=== PATIENT | male | born 1975 | race Caucasian/White ===

== ENCOUNTER 2018-09-30 16:53 | Emergency (ER) | payer MEDICAID, OTHER ==
[2018-09-30] MEDS ORDERED: HYDROmorphone 1 MG/ML Syringe IVPUSH ONE ×2 (17:28→18:38)
[2018-09-30] MEDS ORDERED: Metoclopramide 10 MG/2 ML SDV IVPUSH ONE (17:28)
[2018-09-30] MEDS ORDERED: Dextrose 5%-0.9% NaCl 1,000 ML IV SCH (17:30)
--- NOTE | 2018-09-30 17:30 | EDM.PDOC ---
ED HPI GENERAL MEDICAL PROBLEM - General Chief Complaint: Abdominal Pain Stated Complaint: L SIDE ABD PAIN Time Seen by Provider: 09/30/18 17:24 Source of Information: Reports: Patient History Limitations: Reports: No Limitations - History of Present Illness INITIAL COMMENTS - FREE TEXT/NARRATIVE: 42-year-old male presents the ED due to severe left stephanie-abdominal pain. States is worse in the left lower quadrant and suprapubically. Patient states became ill over a week ago. He was seen and is likely last weekend and prescribed Cipro and Flagyl. He filled the prescriptions in [place] on September 26. He believes the medication is going right through him as he is having diarrhea. Also having nausea and intermittent vomiting. Pain is worse now than it's ever been in the past. He has a history of diverticulitis 3 times in the past. Previous abdominal surgeries that of a hernia raphe repair inguinal right side and a removal of an undescended testicle. He's had intermittent fever and chills. At present he has not been able to eat much. Stools are semi-formed without any obvious blood but are darker in color. He is not taking any Pepto- Bismol. It hurts to walk it hurts to sit in a vehicle in a hurts terribly to cough. He states intermittently he is vomiting and he has a known hiatal hernia which is bothering him a good deal in the epigastrium as well. Onset: Gradual Onset Date: 09/23/18 (Believes he became ill about a week ago.) Duration: Day(s):, Getting Worse Location: Reports: Abdomen (Left hemiabdomen particularly left lower quadrant and suprapubically rating slightly into his lower back) Quality: Reports: Sharp (Deep aching pain with occasional sharp colicky pain), Stabbing, Other Severity: Moderate (8-9 out of 10) Improves with: Reports: Rest Worsens with: Reports: Other, Movement Context: Denies: Activity (Coughing or riding in a vehicle.), Exercise, Lifting , Sick Contact, Trauma, Other Associated Symptoms: Reports: Cough, Fever/Chills, Loss of Appetite, Nausea/ Vomiting, Other (Diarrhea without blood some eye formed stool usually 5-6 times daily.). Denies: cough w sputum, Diaphoresis, Headaches, Malaise, Rash, Seizure (2 and nausea vomiting with quite significant pain in the epigastrium. He has a known hiatal hernia), Shortness of Breath, Syncope Left Abdomen Pain Score (Numeric/FACES): 8 - Related Data Allergies Allergy/AdvReac Type Severity Reaction Status Date / Time contrast dye Allergy Itching Uncoded 09/21/18 20:29 [employer] Home Meds: Home Meds Ciprofloxacin HCl [Cipro] 500 mg PO BID 09/30/18 [History] Clindamycin HCl 300 mg PO TID #21 capsule 09/30/18 [Rx] Dicyclomine [Bentyl] 20 mg PO Q6H PRN #12 tablet 09/30/18 [Rx] Escitalopram [Lexapro] 10 mg PO DAILY 09/30/18 [History] Losartan [Cozaar] 50 mg PO DAILY 09/30/18 [History] Metoclopramide HCl [Reglan] 10 mg PO Q6H #10 tablet 09/30/18 [Rx] Ondansetron [Zofran ODT] 4 mg SL ASDIRECTED 09/30/18 [History] oxyCODONE HCl/Acetaminophen [Percocet 5-325 mg Tablet] 1 - 2 each PO Q4H PRN # 20 tablet 09/30/18 [Rx] Past Medical History Cardiovascular History: Reports: Hypertension Gastrointestinal History: Reports: Diverticulosis, GERD, Helicobacter Pylori, Hiatal Hernia, Other (See Below) Other Gastrointestinal History: endoscopy Genitourinary History: Reports: Renal Calculus Psychiatric History: Reports: Depression Endocrine/Metabolic History: Reports: Hypoparathyroidism - Past Surgical History GI Surgical History: Reports: Cholecystectomy, Colonoscopy, Hernia, Inguinal Male Surgical History: Reports: Other (See Below) Other Male Surgeries/Procedures: testicle removed Social & Family History - Tobacco Use Smoking Status *Q: Current Every Day Smoker Years of Tobacco use: 10 Packs/Tins Daily: 0.5 - Caffeine Use Caffeine Use: Reports: Coffee, Soda - Living Situation & Occupation Living situation: Reports: ([id number] father) ED ROS GENERAL - Review of Systems Review Of Systems: See Below Constitutional: Reports: Fever, Chills, Malaise, Weakness, Fatigue, Decreased Appetite, Weight Loss HEENT: Reports: No Symptoms Respiratory: Reports: Cough Cardiovascular: Reports: Chest Pain Endocrine: Reports: Fatigue GI/Abdominal: Reports: Abdominal Pain, Diarrhea (Left stephanie-abdominal pain particularly left lower quadrant and suprapubically.), Nausea ( Loose semi- formed stools dark in color without any obvious blood.), Vomiting (Committed nausea and vomiting.) : Reports: No Symptoms Musculoskeletal: Reports: Back Pain Skin: Reports: No Symptoms (Does have pain in his lower back left side starting in the abdomen.) Neurological: Reports: No Symptoms Psychiatric: Reports: No Symptoms Hematologic/Lymphatic: Reports: No Symptoms Immunologic: Reports: No Symptoms ED EXAM, GI/ABD - Physical Exam Exam: See Below Exam Limited By: No Limitations General Appearance: Alert, Moderate Distress (Appears to be in significant degree of distress.) Eyes: Bilateral: Normal Appearance (No scleral icterus.) Throat/Mouth: Other Head: Atraumatic (Tongue is mildly dry.), Normocephalic Neck: Normal Inspection, Supple, Non-Tender, Full Range of Motion, Other (Well- healed thyroid ectomy scar.He had neck surgery for removal of 2 of his parathyroid glands because of hypercalcemia. Apparently his calcium is slowly rising again.). No: Lymphadenopathy (L), Lymphadenopathy (R) Respiratory/Chest: Respiratory Distress Cardiovascular: Normal Peripheral Pulses, No Edema, No Gallop, No Murmur, No Rub , Tachycardia (Tachycardia at rest 10 5/m) GI/Abdominal Exam: No Organomegaly, Guarding, Rebound (Left lower quadrant. Clinically has an acute abdomen.), Tender (He has tenderness to even light percussion in the left lower quadrant of the abdomen and suprapubically.), Abnormal Bowel Sounds (Slightly hyperactive bowel sounds in all 4 quadrants.) (Male) Exam: Other (Previous right hernia raphe and apparently removal of an undescended right-sided testicle.) Back Exam: Normal Inspection, Full Range of Motion, CVA Tenderness (L). No: CVA Tenderness (R) (Mild) Extremities: Normal Inspection, Normal Range of Motion, Non-Tender, No Pedal Edema Neurological: Alert, Oriented, CN II-XII Intact, Normal Cognition Psychiatric: Tearful, Other Skin Exam: Warm (Appears very worn out in terms of trying to cope with his current illness.), Dry, Intact, Normal Color, No Rash, Other (Afebrile at present.) Course - Vital Signs Last Recorded V/S: Last Vital Signs Temp 36.9 C 09/30/18 17:21 Pulse 104 H 09/30/18 17:21 Resp 20 09/30/18 17:21 BP 169/132 H 09/30/18 17:21 Pulse Ox 98 09/30/18 17:21 - Orders/Labs/Meds Orders: Active Orders 24 hr Category Date Time Status Blood Culture x2 Reflex Set [OM.PC] Stat Oth 09/30/18 17:29 Ordered Labs: Laboratory Tests 09/30/18 09/30/18 09/30/18 Range/Units 17:25 17:25 17:25 WBC 8.56 (4.23-9.07) K/mm3 RBC 5.52 (4.63-6.08) M/mm3 Hgb 16.6 (13.7-17.5) gm/L Hct 49.2 (40.1-51.0) % MCV 89.1 (79.0-92.2) fl MCH 30.1 (25.7-32.2) pg MCHC 33.7 (32.2-35.5) g/dl RDW Std Deviation 40.9 (35.1-43.9) fL Plt Count 267 (163-337) K/mm3 MPV 10.0 (9.4-12.3) fl Neutrophils % (Manual) 77 H (40-60) % Band Neutrophils % 1 (0-10) % Lymphocytes % (Manual) 13 L (20-40) % Atypical Lymphs % 0 % Monocytes % (Manual) 7 (2-10) % Eosinophils % (Manual) 2 (0.8-7.0) % Basophils % (Manual) 0 L (0.2-1.2) Platelet Estimate Adequate RBC Morph Comment Normal ESR (0-15) mm/hr PT 11.1 (9.5-12.1) SECONDS INR 1.02 APTT (24-31) SECONDS Sodium 141 (136-145) mEq/L Potassium 3.8 (3.5-5.1) mEq/L Chloride 105 (98-107) mEq/L Carbon Dioxide 25 (21-32) mEq/L Anion Gap 14.8 (5-15) BUN 13 (7-18) mg/dL Creatinine 1.0 (0.7-1.3) mg/dL Est Cr Clr Drug Dosing 111.88 mL/min Estimated GFR (MDRD) > 60 (>60) mL/min BUN/Creatinine Ratio 13.0 L (14-18) Glucose 134 H (74-106) mg/dL Lactic Acid (0.4-2.0) mmol/L Calcium 10.0 (8.5-10.1) mg/dL Magnesium 2.1 (1.8-2.4) mg/dl Total Bilirubin 0.4 (0.2-1.0) mg/dL AST 44 H (15-37) U/L ALT 70 H (16-63) U/L Alkaline Phosphatase 98 (46-116) U/L C-Reactive Protein 0.2 (<1.0) mg/dL Total Protein 7.1 (6.4-8.2) g/dl Albumin 3.7 (3.4-5.0) g/dl Globulin 3.4 gm/dL Albumin/Globulin Ratio 1.1 (1-2) Urine Color (Yellow) Urine Appearance (Clear) Urine pH (5.0-8.0) Ur Specific [place] (1.005-1.030) Urine Protein (Negative) Urine Glucose (UA) (Negative) Urine Ketones (Negative) Urine Occult Blood (Negative) Urine Nitrite (Negative) Urine Bilirubin (Negative) Urine Urobilinogen (0.2-1.0) Ur Leukocyte Esterase (Negative) Urine RBC (0-5) /hpf Urine WBC (0-5) /hpf Ur Epithelial Cells (0-5) /hpf Urine Bacteria (FEW) /hpf Urine Mucus (FEW) /hpf Ketones (0.0-0.3) mM 09/30/18 09/30/18 09/30/18 Range/Units 17:25 17:25 17:25 WBC (4.23-9.07) K/mm3 RBC (4.63-6.08) M/mm3 Hgb (13.7-17.5) gm/L Hct (40.1-51.0) % MCV (79.0-92.2) fl MCH (25.7-32.2) pg MCHC (32.2-35.5) g/dl RDW Std Deviation (35.1-43.9) fL Plt Count (163-337) K/mm3 MPV (9.4-12.3) fl Neutrophils % (Manual) (40-60) % Band Neutrophils % (0-10) % Lymphocytes % (Manual) (20-40) % Atypical Lymphs % % Monocytes % (Manual) (2-10) % Eosinophils % (Manual) (0.8-7.0) % Basophils % (Manual) (0.2-1.2) Platelet Estimate RBC Morph Comment ESR 5 (0-15) mm/hr PT (9.5-12.1) SECONDS INR APTT 26 (24-31) SECONDS Sodium (136-145) mEq/L Potassium (3.5-5.1) mEq/L Chloride (98-107) mEq/L Carbon Dioxide (21-32) mEq/L Anion Gap (5-15) BUN (7-18) mg/dL Creatinine (0.7-1.3) mg/dL Est Cr Clr Drug Dosing mL/min Estimated GFR (MDRD) (>60) mL/min BUN/Creatinine Ratio (14-18) Glucose (74-106) mg/dL Lactic Acid (0.4-2.0) mmol/L Calcium (8.5-10.1) mg/dL Magnesium (1.8-2.4) mg/dl Total Bilirubin (0.2-1.0) mg/dL AST (15-37) U/L ALT (16-63) U/L Alkaline Phosphatase (46-116) U/L C-Reactive Protein (<1.0) mg/dL Total Protein (6.4-8.2) g/dl Albumin (3.4-5.0) g/dl Globulin gm/dL Albumin/Globulin Ratio (1-2) Urine Color (Yellow) Urine Appearance (Clear) Urine pH (5.0-8.0) Ur Specific [place] (1.005-1.030) Urine Protein (Negative) Urine Glucose (UA) (Negative) Urine Ketones (Negative) Urine Occult Blood (Negative) Urine Nitrite (Negative) Urine Bilirubin (Negative) Urine Urobilinogen (0.2-1.0) Ur Leukocyte Esterase (Negative) Urine RBC (0-5) /hpf Urine WBC (0-5) /hpf Ur Epithelial Cells (0-5) /hpf Urine Bacteria (FEW) /hpf Urine Mucus (FEW) /hpf Ketones 0.14 (0.0-0.3) mM 09/30/18 09/30/18 Range/Units 17:35 18:00 WBC (4.23-9.07) K/mm3 RBC (4.63-6.08) M/mm3 Hgb (13.7-17.5) gm/L Hct (40.1-51.0) % MCV (79.0-92.2) fl MCH (25.7-32.2) pg MCHC (32.2-35.5) g/dl RDW Std Deviation (35.1-43.9) fL Plt Count (163-337) K/mm3 MPV (9.4-12.3) fl Neutrophils % (Manual) (40-60) % Band Neutrophils % (0-10) % Lymphocytes % (Manual) (20-40) % Atypical Lymphs % % Monocytes % (Manual) (2-10) % Eosinophils % (Manual) (0.8-7.0) % Basophils % (Manual) (0.2-1.2) Platelet Estimate RBC Morph Comment ESR (0-15) mm/hr PT (9.5-12.1) SECONDS INR APTT (24-31) SECONDS Sodium (136-145) mEq/L Potassium (3.5-5.1) mEq/L Chloride (98-107) mEq/L Carbon Dioxide (21-32) mEq/L Anion Gap (5-15) BUN (7-18) mg/dL Creatinine (0.7-1.3) mg/dL Est Cr Clr Drug Dosing mL/min Estimated GFR (MDRD) (>60) mL/min BUN/Creatinine Ratio (14-18) Glucose (74-106) mg/dL Lactic Acid 1.3 (0.4-2.0) mmol/L Calcium (8.5-10.1) mg/dL Magnesium (1.8-2.4) mg/dl Total Bilirubin (0.2-1.0) mg/dL AST (15-37) U/L ALT (16-63) U/L Alkaline Phosphatase (46-116) U/L C-Reactive Protein (<1.0) mg/dL Total Protein (6.4-8.2) g/dl Albumin (3.4-5.0) g/dl Globulin gm/dL Albumin/Globulin Ratio (1-2) Urine Color Yellow (Yellow) Urine Appearance Clear (Clear) Urine pH 6.5 (5.0-8.0) Ur Specific [place] > or = 1.030 (1.005-1.030) Urine Protein Trace H (Negative) Urine Glucose (UA) Negative (Negative) Urine Ketones Negative (Negative) Urine Occult Blood Negative (Negative) Urine Nitrite Negative (Negative) Urine Bilirubin Negative (Negative) Urine Urobilinogen 0.2 (0.2-1.0) Ur Leukocyte Esterase Trace H (Negative) Urine RBC 0-5 (0-5) /hpf Urine WBC 0-5 (0-5) /hpf Ur Epithelial Cells 0-5 (0-5) /hpf Urine Bacteria Few (FEW) /hpf Urine Mucus Moderate H (FEW) /hpf Ketones (0.0-0.3) mM Meds: Medications Discontinued Medications Generic Name Dose Route Start Last Admin Trade Name Freq PRN Reason Stop Dose Admin Diatrizoate Meglum/Diatrizoate Sod 90 ml 09/30/18 19:01 Gastrografin 37% PO 09/30/18 19:02 ONETIME ONE Dicyclomine HCl 20 mg 09/30/18 20:21 09/30/18 20:33 Bentyl PO 09/30/18 20:22 20 mg ONETIME ONE Administration Hydromorphone HCl 1 mg 09/30/18 17:28 09/30/18 17:43 Dilaudid IVPUSH 09/30/18 17:29 1 mg ONETIME ONE Administration Hydromorphone HCl 1 mg 09/30/18 18:38 09/30/18 18:58 Dilaudid IVPUSH 09/30/18 18:39 1 mg ONETIME ONE Administration Dextrose/Sodium Chloride 1,000 mls @ 999 mls/hr 09/30/18 17:30 09/30/18 17:41 Dextrose 5%-Normal Saline IV 999 mls/hr ASDIRECTED JERI Administration Piperacillin Sod/Tazobactam 100 mls @ 200 mls/hr 09/30/18 20:09 09/30/18 20: 35 Sod 4.5 gm/ Sodium Chloride IV 09/30/18 20:38 200 mls/hr ONETIME ONE Administration Metoclopramide HCl 10 mg 09/30/18 17:28 09/30/18 17:41 Reglan IVPUSH 09/30/18 17:29 10 mg ONETIME ONE Administration Morphine Sulfate 10 mg 09/30/18 20:20 09/30/18 20:30 Morphine IVPUSH 09/30/18 20:21 10 mg ONETIME ONE Administration Morphine Sulfate Confirm 09/30/18 20:27 09/30/18 20:35 Morphine Administered 09/30/18 20:28 Not Given Dose 10 mg .ROUTE .STK-MED ONE Ondansetron HCl 4 mg 09/30/18 19:25 09/30/18 19:31 Zofran IVPUSH 09/30/18 19:26 4 mg ONETIME ONE Administration - Radiology Interpretation Free Text/Narrative:: 42-year-old male presents the ED with a gradually worsening left lower quadrant and left suprapubic abdominal tenderness over the last week. He states he was seen in [facility] last and prescribed Cipro and Flagyl which he has been taking since the . He filled the prescriptions in [place] as the drugstore was closed in [facility]. He has had diverticulitis at least 3 times the past. States usually the antibiotics to track within the first couple of days. He believes with the increased amount of diarrhea sand that this is maybe going right through him. He is unable to eat. Feels lightheaded dizzy and intermittently quite nauseated possibly from the Flagyl. Those are semi-formed without blood. On examination he has tenderness to percussion across the left lower quadrant and suprapubically with evidence of guarding and rebound tenderness suggesting acute peritonitis in the left lower quadrant. Plan IV D5 normal saline at open. Given Dilaudid 1 mg IV and Reglan 10 mg IV. He will have CT of the abdomen with oral contrast only. He states he gets quite itchy from IV contrast. - Re-Assessments/Exams Free Text/Narrative Re-Assessment/Exam: 09/30/18 20:07 Labs reveal a normal white count at 8.56 with 77% neutrophils and 1% band cells. Hemoglobin is slightly elevated at 16.6 and hematocrit is 49.2. This suggest mild hemoconcentration. Clinical history 67,000. Sedimentation rate is 5. PT is 11.1 with an INR of 1.02. PTT is 26. Sodium is 141 with potassium of 3.8. Chloride 105 with bicarbonate 25. Anion gap is 14.8. BUN is 13 with a creatinine of 1.0. GFR is greater than 60. BUN/creatinine ratio is 13.0. Glucose 134. Lactic acid 1.3. Calcium 10.0 with magnesium of 2.1. Total bilirubin is 0.4. AST is 44 with this ALT of 70. Alk phosphatase is 98. C reactive protein is 0.2. Urinalysis is negative. Serum ketones are normal at 0.14. 09/30/18 20:010: CT reported radiologist reveals appearance of the liver to show no focal parenchymal abnormality. Previous cholecystectomy with surgical clips evident. Adrenal glands show no nodule small nonobstructing calculus is noted within the upper right kidney measuring 3.7 mm. No other abnormal calcifications are seen within the kidneys no discrete other malady within the pancreas is appreciated. Atherosclerotic ulcer case are seen within the aorta and iliac vessels. No retroperitoneal adenopathy is seen no mesenteric abnormalities are seen no pelvic mass or adenopathy is identified diverticuli seen within the sigmoid and descending colon with no active inflammatory changes appreciated. No free fluid is seen appendix is seen and is normal in size small bowel is slightly prominent which is felt to be due to hypertonic effectively contrast. On my assessment I thought there might be a varies small amount of inflammation along the superior aspect of the left colon in the splenic flexure area. Certainly no pelvic abscess which was my concern. My other concern now is that this patient may be drug-seeking. We did a check through the [place] pharmaceutical board and he has not received more than 20 tablets of oxycodone in the last year in this state. 09/30/18 20:16 discussed the findings of the CT with the patient. Since he may be partially treated by the medications he's been given any may be suffering side effects of the metronidazole with nausea and vomiting going to give him the benefit of the doubt. Flagyl will be discontinued and replaced with clindamycin 300 mg 3 times a day for 7 days. He has enough Cipro to last another 7 days as well. Twice a day. He will use Reglan 10 mg every 6 hours 4 consecutive doses to prevent any further nausea vomiting and the Flagyl will be out of his system pretty well within 24 hours time. I will send him home with 12 tablets of Percocet 5/325 one or 2 every 4-6 hours needed for pain relief in combination with Bentyl 20 mg every 6 hours to relieve spasm of the colon. Departure - Departure Time of Disposition: 21:10 Disposition: Home, Self-Care 01 Condition: Fair Clinical Impression: Diverticulitis Abdominal pain Qualifiers: Abdominal location: lower abdomen, unspecified Qualified Code(s): R10.30 - Lower abdominal pain, unspecified - Discharge Information *PRESCRIPTION DRUG MONITORING PROGRAM REVIEWED*: Not Applicable *COPY OF PRESCRIPTION DRUG MONITORING REPORT IN PATIENT JUSTEN: Not Applicable Prescriptions: Clindamycin HCl 300 mg PO TID #21 capsule Dicyclomine [Bentyl] 20 mg PO Q6H PRN #12 tablet PRN Reason: Abdominal cramps/diarrhea Metoclopramide HCl [Reglan] 10 mg PO Q6H #10 tablet oxyCODONE HCl/Acetaminophen [Percocet 5-325 mg Tablet] 1 - 2 each PO Q4H PRN # 20 tablet PRN Reason: pain relief. Instructions: Diverticulitis Referrals: PCP,Not In Area [Primary Care Provider] - Forms: ED Department Discharge Additional Instructions: Evaluation the emergency room today in regards to persistent left stephanie- abdominal pain felt most likely to be due to diverticulitis flare. He was seen and it was late on the weekend and prescribed a course of metronidazole and Cipro .It's unclear whether or not the medication has stayed within your system were gone right 3 with diarrhea and production of nausea and vomiting. Lab tests done here reveal a normal white count with no sign of any systemic serious infections. Liver function kidney function were normal as well. CT of the abdomen and pelvis was performed with oral contrast only and identified diverticuli throughout the left hemicolon with minimal inflammation of the upper left colon and the splenic flexure. A back abscess is identified. Some swelling of the internal aspect of the left colon was identified to suggest colitis. Your pain is suggestive of strong spasm of the bowel due to inflammation. It appears that we may be seeing a partially treated disease process with the antibiotics that you have been taking. You have received IV fluids while in the ED as well as Dilaudid 1 mg IV 2 and Reglan 7.5 mg IV initially and then 4 mg of Zofran IV after this. You were also given antibiotic Zosyn 4.5 g while in the ED. My suggestion is to discontinue the metronidazole or Flagyl medication as I believe it is making you had nausea and vomiting from the side effect of the medication. Replace this with clindamycin 300 mg 3 times daily for the next 7 days which will kill the anaerobic infection that often causes diverticulitis. Continue Cipro 500 mg twice daily until the prescription is finished. Suggest use of Reglan 10 mg every 6 hours for relief of nausea and vomiting for at least 3 consecutive doses with the next tablet being due at midnight. After this may use on a when necessary basis for nausea. Once the Flagyl is under your system I suspect the nausea vomiting will settle down. May use Bentyl 20 mg every 6 hours to help relieve spasm of the colon and it also helps with hiatal hernia. Percocet tabs 12/16/24 one or 2 every 4-6 hours as needed for pain relief i.e. spasm of the colon. Hopefully we'll only need this for about 3 days until the antibiotics become effectual in reducing the inflammation relieve your spasm. Zaki personal care physician if not markedly improved on WednesdayOctober 03. Diet should be mostly clear fluids. May try crackers, Jell-O, toast, soft boiled egg, poached egg. Suggest no dairy products or apple juice or grape juice until stools are formed backup. - My Orders Last 24 Hours: My Active Orders 09/30/18 17:29 Blood Culture x2 Reflex Set [OM.PC] Stat - Assessment/Plan Last 24 Hours: My Active Orders 09/30/18 17:29 Blood Culture x2 Reflex Set [OM.PC] Stat
[2018-09-30] MEDS ORDERED: Diatrizoate Meglumine/Diatrizoate Sodium 37% 120 ML Bottle PO ONE (19:01)
[2018-09-30] MEDS ORDERED: Ondansetron 4 MG/2 ML SDV IVPUSH ONE (19:25)
--- NOTE | 2018-09-30 19:36 | CT ---
CT abdomen and pelvis Technique: Multiple axial sections were obtained from above the dome of the diaphragm inferiorly through the pubic symphysis. Intravenous contrast was utilized. Oral contrast has been given. Comparison: No previous study. Findings: Left lung base shows a small pleural-based nodule measuring 5 mm. Visualized lung bases otherwise are clear. Noncontrast appearance of the liver shows no focal parenchymal abnormality. Surgical clips are seen from prior cholecystectomy. Spleen appears normal in size. Adrenal glands show no nodule. Small nonobstructing calculus is noted within the upper right kidney measuring 3.7 mm. No other abnormal calcifications are seen within the kidneys. No ureteral dilatation is seen. No discrete abnormality within the pancreas is appreciated. Aorta shows no aneurysm. Atherosclerotic calcifications are seen within the aorta and iliac vessels. No retroperitoneal adenopathy is seen. No mesenteric abnormalities are seen. No pelvic mass or adenopathy is seen. Diverticuli seen within the sigmoid and descending colon. No inflammatory change is seen to indicate diverticulitis. No free fluid is seen. Appendix is seen and is normal in size. Small bowel is slightly prominent which is felt to be due to hypertonic effect of oral contrast. Bone window settings were reviewed which appear within normal limits for the patient's age. Impression: 1. Small pleural-based nodule within the left lung base. If patient is not a smoker, this can be ignored. If patient is a smoker, recommend repeat chest CT in one year. 2. Small nonobstructing stone within the upper left kidney. 3. Other incidental findings. Nothing acute is seen on CT study of the abdomen and pelvis. Diagnostic code #9
[2018-09-30] MEDS ORDERED: Piperacillin/Tazobactam 4.5 GM in Sodium Chloride 0.9% 100 ML IV ONE (20:09)
[2018-09-30] MEDS ORDERED: Morphine 10 MG/ML Syringe IVPUSH ONE (20:20)
[2018-09-30] MEDS ORDERED: Dicyclomine 10 MG Cap PO ONE (20:21)
[2018-09-30] MEDS ORDERED: Morphine 10 MG/ML SDV ONE (20:27)
== END 2018-09-30 21:13 | disposition home or self-care (01) ==
LOC: JD.ED 16:53
DX: K57.32 Diverticulitis of large intestine without perforation or abscess without bleeding (principal); I10 Essential (primary) hypertension; F17.210 Nicotine dependence, cigarettes, uncomplicated; Z91.041 Radiographic dye allergy status; Z79.899 Other long term (current) drug therapy
CPT/HCPCS: 36415; 74176; 80053; 81001; 82009; 83605; 83735; 85007; 85027; 85610; 85652; 85730; 86140; 96361; 96365; 96375; 96376; 99284; A9270; J1170; J2270; J2405; J2543; J2765; J7030; J7042; Q9963

== ENCOUNTER 2018-10-05 17:50 | Emergency (ER) | payer MEDICAID ==
--- NOTE | 2018-10-05 18:36 | EDM.PDOC ---
ED HPI GENERAL MEDICAL PROBLEM - General Chief Complaint: Abdominal Pain Stated Complaint: LEFT STOMACH PAIN Time Seen by Provider: 10/05/18 18:36 Source of Information: Reports: Patient - History of Present Illness INITIAL COMMENTS - FREE TEXT/NARRATIVE: Patient is here for evaluation of left sided abdominal pain. He reports the pain as being aching, sharp and squeezing in nature to both left upper and lower quadrants. This has been going on for well over a week. Patient is here tonight as he feels that his pain has worsened. He is vomiting after every time he eats. Has had persistent diarrhea, last loose stool was around noon. He denies any heartburn or GERD symptoms currently but has these frequently. He was initially in [place] and diagnosed with diverticulitis prescribed Cipro and Flagyl, this was filled on 09/26/18 He was then evaluated in the emergency department here on 09/30, at that time Flagyl was stopped and clindamycin was started. He continued with Cipro. He was also given a prescription for Bentyl which he says has helped very minimally. CT 09/30/2018 demonstrated diverticuli without inflammation but patient already been on the antibiotic for a few days. There was a small nonobstructing stone seen in the left upper pole of the kidney. There was also a left lower lobe lung nodule noticed. Patient is a smoker, he will need to follow up with his PCP for further evaluation of this. Patient reports a number of abdominal surgeries. He had surgery for an undescended testicle as a child. History of right inguinal and hiatal hernias. History of right parathyroidectomy at [facility]. Last year he had a cholecystectomy in [place], [place]. History of H. pylori approximately 8 years ago which was treated with antibiotics. Had EGD and colonoscopy approximately 3 years ago, patient reports that he has had approximately 6 of these in his lifetime. Patient has a history of depression, he is on Lexapro and trazodone for this. Patient is a daily cigarette smoker. He reports smoking marijuana for approximately 20 years. He states that he has cut back on his marijuana use, only uses once in the last month. He states that he is a 30 "had the talk" with his gastrointestinal provider at [facility] who said that his symptoms are not related to his marijuana. Patient does state that having taking hot showers makes his pain and nausea and vomiting better. He denies any other alcohol use. Patient reports that he is a [id number] father, travels with his fiance as she is a inpatient nursing aide so they have homes and several cities and travel frequently. Therefore he has difficulty following up with a PCP. Left Abdomen Pain Score (Numeric/FACES): 9 - Related Data Allergies Allergy/AdvReac Type Severity Reaction Status Date / Time contrast dye Allergy Itching Uncoded 09/21/18 20:29 [facility] Home Meds: Home Meds Ciprofloxacin HCl [Cipro] 500 mg PO BID 09/30/18 [History] Clindamycin HCl 300 mg PO TID #21 capsule 09/30/18 [Rx] Dicyclomine [Bentyl] 20 mg PO Q6H PRN #12 tablet 09/30/18 [Rx] Escitalopram [Lexapro] 10 mg PO DAILY 09/30/18 [History] Losartan [Cozaar] 50 mg PO DAILY 09/30/18 [History] Ondansetron [Zofran ODT] 4 mg SL ASDIRECTED PRN 09/30/18 [History] Cholecalciferol (Vitamin D3) [Vitamin D] 1 tab PO DAILY 10/05/18 [History] Dicyclomine [Bentyl] 20 mg PO TID PRN #20 tab 10/05/18 [Rx] Sucralfate [Carafate] 1 gm PO Q6H 30 Days #120 cup 10/05/18 [Rx] traZODone HCl [Trazodone HCl] 50 mg PO BEDTIME 10/05/18 [History] Past Medical History Cardiovascular History: Reports: Hypertension Gastrointestinal History: Reports: Diverticulosis, GERD, Helicobacter Pylori, Hiatal Hernia, Other (See Below) Other Gastrointestinal History: endoscopy Genitourinary History: Reports: Renal Calculus Psychiatric History: Reports: Depression Endocrine/Metabolic History: Reports: Hypoparathyroidism - Past Surgical History GI Surgical History: Reports: Cholecystectomy, Colonoscopy, Hernia, Inguinal Male Surgical History: Reports: Other (See Below) Other Male Surgeries/Procedures: testicle removed Social & Family History - Family History Family Medical History: Noncontributory - Tobacco Use Smoking Status *Q: Current Every Day Smoker Years of Tobacco use: 10 Packs/Tins Daily: 1 - Caffeine Use Caffeine Use: Reports: Coffee - Recreational Drug Use Recreational Drug Use: Yes Drug Use in Last 12 Months: Yes Recreational Drug Type: Reports: Marijuana/Hashish Recreational Drug Use Frequency: Not Used In Over 1 Month - Living Situation & Occupation Living situation: Reports: ([id number] father) ED ROS GENERAL - Review of Systems Review Of Systems: See Below Constitutional: Reports: Malaise, Weakness, Decreased Appetite. Denies: Fever, Chills Respiratory: Reports: No Symptoms Cardiovascular: Reports: No Symptoms GI/Abdominal: Reports: Abdominal Pain, Diarrhea, Decreased Appetite, Flatus, Nausea, Vomiting. Denies: Bloody Stool, Constipation, Hematochezia, Melena : Reports: No Symptoms Musculoskeletal: Reports: No Symptoms Skin: Reports: No Symptoms Neurological: Reports: No Symptoms ED EXAM, GI/ABD - Physical Exam Exam: See Below Exam Limited By: No Limitations General Appearance: Alert, WD/WN, Mild Distress Throat/Mouth: Normal Inspection, Normal Oropharynx Head: Atraumatic, Normocephalic Neck: Normal Inspection, Supple, Non-Tender Respiratory/Chest: No Respiratory Distress, Lungs Clear, Normal Breath Sounds, Chest Non-Tender Cardiovascular: Regular Rate, Rhythm, No JVD, No Murmur, No Rub GI/Abdominal Exam: Soft, Tender (LUQ/LLQ moderate-severe). No: Guarding, Rigid , Rebound, Abnormal Bowel Sounds Neurological: Alert, Oriented Psychiatric: Normal Affect, Normal Mood Skin Exam: Warm, Dry, Intact Lymphatic: No Adenopathy Course - Vital Signs Last Recorded V/S: Last Vital Signs Temp 97.6 F 10/05/18 18:27 Pulse 94 10/05/18 18:27 Resp 16 10/05/18 18:27 BP 158/99 H 10/05/18 18:27 Pulse Ox 98 10/05/18 18:27 - Orders/Labs/Meds Orders: Active Orders 24 hr Category Date Time Status C DIFFICILE BY PCR W/NAP1 [MOLEC] Stat Lab 10/05/18 19:15 Ordered CULTURE STOOL + SHIGATOX [RM] Stat Lab 10/05/18 19:15 Ordered H.PYLORI ANTIGEN, STOOL [OP] Stat Lab 10/05/18 19:15 Ordered WBC, STOOL [OP] Stat Lab 10/05/18 19:15 Ordered Labs: Laboratory Tests 10/05/18 10/05/18 10/05/18 Range/Units 18:15 18:15 18:15 WBC 8.61 (4.23-9.07) K/mm3 RBC 5.34 (4.63-6.08) M/mm3 Hgb 16.2 (13.7-17.5) gm/L Hct 48.4 (40.1-51.0) % MCV 90.6 (79.0-92.2) fl MCH 30.3 (25.7-32.2) pg MCHC 33.5 (32.2-35.5) g/dl RDW Std Deviation 41.9 (35.1-43.9) fL Plt Count 268 (163-337) K/mm3 MPV 10.4 (9.4-12.3) fl Neutrophils % (Manual) 65 H (40-60) % Band Neutrophils % 0 (0-10) % Lymphocytes % (Manual) 30 (20-40) % Atypical Lymphs % 0 % Monocytes % (Manual) 4 (2-10) % Eosinophils % (Manual) 1 (0.8-7.0) % Basophils % (Manual) 0 L (0.2-1.2) Platelet Estimate Adequate RBC Morph Comment Normal Sodium 141 (136-145) mEq/L Potassium 4.0 (3.5-5.1) mEq/L Chloride 107 (98-107) mEq/L Carbon Dioxide 25 (21-32) mEq/L Anion Gap 13.0 (5-15) BUN 16 (7-18) mg/dL Creatinine 1.0 (0.7-1.3) mg/dL Est Cr Clr Drug Dosing 80.58 mL/min Estimated GFR (MDRD) > 60 (>60) mL/min BUN/Creatinine Ratio 16.0 (14-18) Glucose 114 H (74-106) mg/dL Calcium 10.0 (8.5-10.1) mg/dL Magnesium 2.2 (1.8-2.4) mg/dl Total Bilirubin 0.2 (0.2-1.0) mg/dL AST 27 (15-37) U/L ALT 73 H (16-63) U/L Alkaline Phosphatase 93 (46-116) U/L C-Reactive Protein < 0.2 (<1.0) mg/dL Total Protein 7.2 (6.4-8.2) g/dl Albumin 3.8 (3.4-5.0) g/dl Globulin 3.4 gm/dL Albumin/Globulin Ratio 1.1 (1-2) Lipase 172 (73-393) U/L Urine Color (Yellow) Urine Appearance (Clear) Urine pH (5.0-8.0) Ur Specific [place] (1.005-1.030) Urine Protein (Negative) Urine Glucose (UA) (Negative) Urine Ketones (Negative) Urine Occult Blood (Negative) Urine Nitrite (Negative) Urine Bilirubin (Negative) Urine Urobilinogen (0.2-1.0) Ur Leukocyte Esterase (Negative) Urine RBC (0-5) /hpf Urine WBC (0-5) /hpf Ur Epithelial Cells (0-5) /hpf Urine Bacteria (FEW) /hpf Urine Mucus (FEW) /hpf Urine Opiates Screen (JVKQMP=618) Ur Buprenorphine Scrn (CUTOFF=10) Ur Oxycodone Screen (NMK8PO=582) Urine Methadone Screen (QLT0FB=160) Ur Propoxyphene Screen (UUBPYI=089) Ur Barbiturates Screen (YAFTVV=051) Ur Tricyclics Screen (FTIRJZ=044) Ur Phencyclidine Scrn (CUTOFF=25) Ur Amphetamine Screen (QESKIC=226) U Methamphetamines Scrn (ZUIFNE=577) U Benzodiazepines Scrn (FUZHGX=393) U Cocaine Metab Screen (FICWRJ=368) U Marijuana (THC) Screen (CUTOFF=50) 10/05/18 10/05/18 Range/Units 18:30 18:30 WBC (4.23-9.07) K/mm3 RBC (4.63-6.08) M/mm3 Hgb (13.7-17.5) gm/L Hct (40.1-51.0) % MCV (79.0-92.2) fl MCH (25.7-32.2) pg MCHC (32.2-35.5) g/dl RDW Std Deviation (35.1-43.9) fL Plt Count (163-337) K/mm3 MPV (9.4-12.3) fl Neutrophils % (Manual) (40-60) % Band Neutrophils % (0-10) % Lymphocytes % (Manual) (20-40) % Atypical Lymphs % % Monocytes % (Manual) (2-10) % Eosinophils % (Manual) (0.8-7.0) % Basophils % (Manual) (0.2-1.2) Platelet Estimate RBC Morph Comment Sodium (136-145) mEq/L Potassium (3.5-5.1) mEq/L Chloride (98-107) mEq/L Carbon Dioxide (21-32) mEq/L Anion Gap (5-15) BUN (7-18) mg/dL Creatinine (0.7-1.3) mg/dL Est Cr Clr Drug Dosing mL/min Estimated GFR (MDRD) (>60) mL/min BUN/Creatinine Ratio (14-18) Glucose (74-106) mg/dL Calcium (8.5-10.1) mg/dL Magnesium (1.8-2.4) mg/dl Total Bilirubin (0.2-1.0) mg/dL AST (15-37) U/L ALT (16-63) U/L Alkaline Phosphatase (46-116) U/L C-Reactive Protein (<1.0) mg/dL Total Protein (6.4-8.2) g/dl Albumin (3.4-5.0) g/dl Globulin gm/dL Albumin/Globulin Ratio (1-2) Lipase (73-393) U/L Urine Color Yellow (Yellow) Urine Appearance Clear (Clear) Urine pH 6.5 (5.0-8.0) Ur Specific [place] 1.025 (1.005-1.030) Urine Protein Negative (Negative) Urine Glucose (UA) Negative (Negative) Urine Ketones Negative (Negative) Urine Occult Blood Negative (Negative) Urine Nitrite Negative (Negative) Urine Bilirubin Negative (Negative) Urine Urobilinogen 0.2 (0.2-1.0) Ur Leukocyte Esterase Negative (Negative) Urine RBC 0-5 (0-5) /hpf Urine WBC 0-5 (0-5) /hpf Ur Epithelial Cells Not seen (0-5) /hpf Urine Bacteria Rare (FEW) /hpf Urine Mucus Moderate H (FEW) /hpf Urine Opiates Screen Negative (MJYNWT=327) Ur Buprenorphine Scrn Negative (CUTOFF=10) Ur Oxycodone Screen Negative (FYN1QQ=704) Urine Methadone Screen Negative (FGD9MI=298) Ur Propoxyphene Screen Negative (HBOTCZ=696) Ur Barbiturates Screen Negative (IUYCAW=880) Ur Tricyclics Screen Negative (FSCWRR=887) Ur Phencyclidine Scrn Negative (CUTOFF=25) Ur Amphetamine Screen Negative (ALCKKS=843) U Methamphetamines Scrn Negative (GFWMKX=962) U Benzodiazepines Scrn Negative (FUMZWG=086) U Cocaine Metab Screen Negative (XIPJTC=219) U Marijuana (THC) Screen Presumptive positive H (CUTOFF=50) Meds: Medications Discontinued Medications Generic Name Dose Route Start Last Admin Trade Name Freq PRN Reason Stop Dose Admin Al Hydroxide/Mg Hydroxide 30 0 ml 10/05/18 19:16 10/05/18 19:34 ml/ Lidocaine HCl 15 ml PO 10/05/18 19:17 45 ml ONETIME ONE Administration Sodium Chloride 1,000 mls @ 999 mls/hr 10/05/18 19:16 10/05/18 19:33 Normal Saline IV 10/05/18 20:16 999 mls/hr ONETIME ONE Administration Metoclopramide HCl 10 mg 10/05/18 19:18 10/05/18 19:33 Reglan IVPUSH 10/05/18 19:19 10 mg ONETIME ONE Administration Morphine Sulfate 4 mg 10/05/18 19:16 10/05/18 19:42 Morphine IVPUSH 10/05/18 19:17 Not Given ONETIME ONE Morphine Sulfate Confirm 10/05/18 19:29 10/05/18 19:42 Morphine Sulfate Administered 10/05/18 19:30 Not Given Dose 4 mg IV .STK-MED ONE Morphine Sulfate 4 mg 10/05/18 19:20 10/05/18 19:43 Morphine Sulfate IV 10/05/18 19:21 4 mg ONETIME STA Administration Morphine Sulfate 4 mg 10/05/18 20:30 Morphine IVPUSH 10/05/18 20:31 ONETIME ONE Morphine Sulfate 4 mg 10/05/18 20:33 Morphine Sulfate IV 10/05/18 20:34 ONETIME STA - Re-Assessments/Exams Free Text/Narrative Re-Assessment/Exam: Will get some lab work, start some saline. Give some Reglan for his nausea. Patient states that "Dilaudid isn't enough, morphine works better ". Will give him 4 mg of morphine. Will also get stool culture, patient reports having diarrhea very frequently so hopefully this will be able to be obtained here in the emergency department. 02/20/19 19:27 Patient does have LLL lung nodule, this will need further evaluation through his PCP. Certainly he should quit smoking. 10/05/18 19:51 WBC 8610 with 65% neutrophils and no bands. CRP <0.2. Electrolytes within normal limits. Anion gap 13.0. Urine drug screen is positive for marijuana. With normal lab work, I see no indication to repeat his CT from 5 days ago. Patient needs to follow up with his primary provider and likely his gastrointestinal provider from [facility]. 10/05/18 20:25 Upon reexamination patient states that his pain is improved but not resolved. He is resting comfortably playing a game on his phone and watching basketball on television. He was unable to have a bowel movement here in the emergency department, he will return the stool cultures as soon as possible. Will refill his dicyclomine patient will also be prescribed Carafate. He will follow bland diet, eat small portions. He will be referred to Gen. surgery to have consult for EGD and colonoscopy. Patient will follow up with a local primary provider as it now sounds like he will be living here full-time He will return to the emergency room for any new or worsening symptoms. 10/05/18 20:43 10/05/18 20:44 Departure - Departure Time of Disposition: 20:35 Disposition: Home, Self-Care 01 Condition: Good Clinical Impression: Left sided abdominal pain - Discharge Information *PRESCRIPTION DRUG MONITORING PROGRAM REVIEWED*: Yes *COPY OF PRESCRIPTION DRUG MONITORING REPORT IN PATIENT JUSTEN: Yes Prescriptions: Dicyclomine [Bentyl] 20 mg PO TID PRN #20 tab PRN Reason: Cramping Sucralfate [Carafate] 1 gm PO Q6H 30 Days #120 cup Instructions: Abdominal Pain, Adult, [id number] Referrals: José Luis Guidry MD [Physician] - Forms: ED Department Discharge Additional Instructions: Your examination tonight demonstrated no sign of infection or inflammation, lab work was normal. With a normal CT 5 days ago I do not feel that we need to repeat this. Return your stool cultures as soon as you are able. Avoid any marijuana use. Keep your diet [place] and eat small portions at a time. Maximize fluid intake. I have sent a medication called Carafate to pharmacy which will coat your stomach and hopefully help with your pain. Ultimately you need to have a scope by a surgeon to further evaluate. I have referred you to follow-up with the general surgeon to have an EGD and colonoscopy. You can schedule this by calling [phone] in the morning. You also need to establish with a primary provider in the area, you can do this by calling the above number as well. Return to the emergency room for any new or worsening symptoms. - My Orders Last 24 Hours: My Active Orders 10/05/18 19:15 C DIFFICILE BY PCR W/NAP1 [MOLEC] Stat CULTURE STOOL + SHIGATOX [RM] Stat H.PYLORI ANTIGEN, STOOL [OP] Stat WBC, STOOL [OP] Stat - Assessment/Plan Last 24 Hours: My Active Orders 10/05/18 19:15 C DIFFICILE BY PCR W/NAP1 [MOLEC] Stat CULTURE STOOL + SHIGATOX [RM] Stat H.PYLORI ANTIGEN, STOOL [OP] Stat WBC, STOOL [OP] Stat
[2018-10-05] MEDS ORDERED: Alum Hydrox/Mag Hydrox/Simeth 30 ML, Lidocaine 2% 15 ML PO ONE ×2 (19:16)
[2018-10-05] MEDS ORDERED: Morphine 4 MG/ML Syringe IVPUSH ONE ×2 (19:16→20:30)
[2018-10-05] MEDS ORDERED: Sodium Chloride 0.9% 1,000 ML IV ONE (19:16)
[2018-10-05] MEDS ORDERED: Metoclopramide 10 MG/2 ML SDV IVPUSH ONE (19:18)
== END 2018-10-05 21:00 | disposition home or self-care (01) ==
LOC: JD.ED 17:50
DX: R10.12 Left upper quadrant pain (principal); R10.32 Left lower quadrant pain; F17.210 Nicotine dependence, cigarettes, uncomplicated; I10 Essential (primary) hypertension; K21.9 Gastro-esophageal reflux disease without esophagitis; F32.9 Major depressive disorder, single episode, unspecified; Z79.899 Other long term (current) drug therapy; Z91.041 Radiographic dye allergy status
CPT/HCPCS: 36415; 80053; 80306; 81001; 83690; 83735; 85007; 85027; 86140; 96361; 96374; 96375; 96376; 99284; A9270; J2270; J2765; J7040

== ENCOUNTER 2018-10-07 12:17 | Emergency (ER) | payer MEDICAID ==
[2018-10-07] MEDS ORDERED: HYDROmorphone 1 MG/ML Syringe IVPUSH STA (13:55)
[2018-10-07] MEDS ORDERED: Sodium Chloride 0.9% 1,000 ML IV ONE (13:57)
--- NOTE | 2018-10-07 14:06 | EDM.PDOC ---
ED HPI GENERAL MEDICAL PROBLEM - General Chief Complaint: Abdominal Pain Stated Complaint: [facility] Time Seen by Provider: 10/07/18 13:28 Source of Information: Reports: Patient, RN Notes Reviewed History Limitations: Reports: No Limitations - History of Present Illness INITIAL COMMENTS - FREE TEXT/NARRATIVE: Patient is a 43 year old male who presents to the ED via ambulance for evaluation of vomiting blood. He has been seen in this ED for diverticulitis on 09/30/18 and 10/05/18. His antibiotic had been change because Dr. Sutherland thought maybe this was causing an increased issue, and Vonda Macias saw him in the ED a few days later for increasing abdominal pain. He has been taking the medications as prescribed, but the pain has not lessened. He states that last night around 10 PM he started vomiting bright red blood up, he states that he was vomiting all last night and didn't be much sleep. He denies any blood in his stools. He is having nausea, vomiting, abdominal pain. He has not been able to get much relief from any of the medications that have been provided from this ED on 2 separate occasions. Abdomen Pain Score (Numeric/FACES): 6 - Related Data Allergies Allergy/AdvReac Type Severity Reaction Status Date / Time contrast dye Allergy Itching Uncoded 10/07/18 12:21 Home Meds: Home Meds Clindamycin HCl 300 mg PO TID #21 capsule 09/30/18 [Rx] Escitalopram [Lexapro] 10 mg PO DAILY 09/30/18 [History] Losartan [Cozaar] 50 mg PO DAILY 09/30/18 [History] Ondansetron [Zofran ODT] 4 mg SL ASDIRECTED PRN 09/30/18 [History] Cholecalciferol (Vitamin D3) [Vitamin D] 1 tab PO DAILY 10/05/18 [History] Dicyclomine [Bentyl] 20 mg PO TID PRN #20 tab 10/05/18 [Rx] Sucralfate [Carafate] 1 gm PO Q6H 30 Days #120 cup 10/05/18 [Rx] traZODone HCl [Trazodone HCl] 50 mg PO BEDTIME 10/05/18 [History] Past Medical History Cardiovascular History: Reports: Hypertension Gastrointestinal History: Reports: Diverticulosis, GERD, Helicobacter Pylori, Hiatal Hernia, Other (See Below) Other Gastrointestinal History: endoscopy Genitourinary History: Reports: Renal Calculus Psychiatric History: Reports: Depression Endocrine/Metabolic History: Reports: Hypoparathyroidism - Past Surgical History GI Surgical History: Reports: Cholecystectomy, Colonoscopy, Hernia, Inguinal Male Surgical History: Reports: Other (See Below) Other Male Surgeries/Procedures: testicle removed Social & Family History - Family History Family Medical History: Noncontributory - Tobacco Use Smoking Status *Q: Current Every Day Smoker Years of Tobacco use: 10 Packs/Tins Daily: 0.5 Second Hand Smoke Exposure: Yes - Caffeine Use Caffeine Use: Reports: None - Recreational Drug Use Recreational Drug Use: Yes Recreational Drug Type: Reports: Marijuana/Hashish Other Recreational Drug Type: Last time was a month ago - Living Situation & Occupation Living situation: Reports: (Bzcv-[id number] father) ED ROS GENERAL - Review of Systems Review Of Systems: See Below Constitutional: Reports: Malaise. Denies: Fever, Chills HEENT: Reports: No Symptoms Respiratory: Reports: No Symptoms Cardiovascular: Reports: No Symptoms Endocrine: Reports: No Symptoms GI/Abdominal: Reports: Abdominal Pain (diffuse), Flatus, Nausea, Vomiting. Denies: Black Stool, Bloody Stool, Constipation, Diarrhea, Decreased Appetite, Distension Musculoskeletal: Reports: No Symptoms Skin: Reports: No Symptoms Neurological: Reports: No Symptoms Psychiatric: Reports: No Symptoms Hematologic/Lymphatic: Reports: No Symptoms ED EXAM, GI/ABD - Physical Exam Exam: See Below Exam Limited By: No Limitations General Appearance: Alert, WD/WN, Mild Distress (pt is balled up on the ED cot in pain) Ears: Normal External Exam Nose: Normal Inspection Throat/Mouth: Normal Inspection, Normal Oropharynx, No Airway Compromise Head: Atraumatic, Normocephalic Neck: Normal Inspection Respiratory/Chest: No Respiratory Distress, Lungs Clear, Normal Breath Sounds, No Accessory Muscle Use, Chest Non-Tender Cardiovascular: Normal Peripheral Pulses, Regular Rate, Rhythm, No Murmur GI/Abdominal Exam: Normal Bowel Sounds, Soft, No Distention, No Mass, Tender ( diffuse abdominal tenderness). No: Guarding, Rigid, Rebound Back Exam: Normal Inspection, Full Range of Motion Extremities: Normal Inspection, Normal Capillary Refill Neurological: Alert, Oriented, Normal Cognition, No Motor/Sensory Deficits Psychiatric: Normal Affect, Normal Mood Skin Exam: Warm, Dry, Intact, Normal Color, No Rash Course - Vital Signs Last Recorded V/S: Last Vital Signs Temp 98.5 F 10/07/18 12:25 Pulse 110 H 10/07/18 12:25 Resp 16 10/07/18 12:25 BP 154/100 H 10/07/18 12:25 Pulse Ox 99 10/07/18 12:25 - Orders/Labs/Meds Labs: Laboratory Tests 10/07/18 10/07/18 10/07/18 Range/Units 14:30 14:35 14:35 WBC 8.16 (4.23-9.07) K/mm3 RBC 5.33 (4.63-6.08) M/mm3 Hgb 16.2 (13.7-17.5) gm/L Hct 47.7 (40.1-51.0) % MCV 89.5 (79.0-92.2) fl MCH 30.4 (25.7-32.2) pg MCHC 34.0 (32.2-35.5) g/dl RDW Std Deviation 41.4 (35.1-43.9) fL Plt Count 266 (163-337) K/mm3 MPV 9.8 (9.4-12.3) fl Neutrophils % (Manual) 71 H (40-60) % Band Neutrophils % 0 (0-10) % Lymphocytes % (Manual) 23 (20-40) % Atypical Lymphs % 0 % Monocytes % (Manual) 5 (2-10) % Eosinophils % (Manual) 1 (0.8-7.0) % Basophils % (Manual) 0 L (0.2-1.2) Platelet Estimate Adequate RBC Morph Comment Normal Sodium 137 (136-145) mEq/L Potassium 4.0 (3.5-5.1) mEq/L Chloride 106 (98-107) mEq/L Carbon Dioxide 25 (21-32) mEq/L Anion Gap 10.0 (5-15) BUN 14 (7-18) mg/dL Creatinine 0.9 (0.7-1.3) mg/dL Est Cr Clr Drug Dosing 123.05 mL/min Estimated GFR (MDRD) > 60 (>60) mL/min BUN/Creatinine Ratio 15.6 (14-18) Glucose 95 (74-106) mg/dL Calcium 10.1 (8.5-10.1) mg/dL Total Bilirubin 0.4 (0.2-1.0) mg/dL AST 25 (15-37) U/L ALT 65 H (16-63) U/L Alkaline Phosphatase 87 (46-116) U/L C-Reactive Protein < 0.2 (<1.0) mg/dL Total Protein 7.2 (6.4-8.2) g/dl Albumin 3.8 (3.4-5.0) g/dl Globulin 3.4 gm/dL Albumin/Globulin Ratio 1.1 (1-2) Urine Color Yellow (Yellow) Urine Appearance Clear (Clear) Urine pH 6.5 (5.0-8.0) Ur Specific [place] > or = 1.030 (1.005-1.030) Urine Protein 1+ H (Negative) Urine Glucose (UA) Negative (Negative) Urine Ketones Negative (Negative) Urine Occult Blood Negative (Negative) Urine Nitrite Negative (Negative) Urine Bilirubin Negative (Negative) Urine Urobilinogen 0.2 (0.2-1.0) Ur Leukocyte Esterase Negative (Negative) Urine RBC 0-5 (0-5) /hpf Urine WBC 0-5 (0-5) /hpf Ur Epithelial Cells Not seen (0-5) /hpf Urine Bacteria Occasional (FEW) /hpf Urine Mucus Many H (FEW) /hpf Meds: Medications Discontinued Medications Generic Name Dose Route Start Last Admin Trade Name Freq PRN Reason Stop Dose Admin Hydromorphone HCl 1 mg 10/07/18 13:55 10/07/18 14:35 Dilaudid IVPUSH 10/07/18 13:56 1 mg ONETIME STA Administration Sodium Chloride 1,000 mls @ 999 mls/hr 10/07/18 13:57 10/07/18 14:34 Normal Saline IV 10/07/18 14:57 999 mls/hr ASDIRECTED ONE Administration Morphine Sulfate 4 mg 10/07/18 15:40 10/07/18 16:11 Morphine IVPUSH 10/07/18 15:41 Not Given ONETIME ONE Morphine Sulfate 4 mg 10/07/18 16:08 10/07/18 16:12 Morphine Sulfate IV 10/07/18 16:09 4 mg ONETIME ONE Administration Ondansetron HCl 4 mg 10/07/18 14:40 10/07/18 14:43 Zofran IVPUSH 10/07/18 14:41 4 mg ONETIME ONE Administration - Re-Assessments/Exams Free Text/Narrative Re-Assessment/Exam: 10/07/18 14:09 Pt presents to the ED for the evaluation of worsening abdominal pain. He has followed all recommendations and taken medications as directed and is now starting to vomit up blood. I have ordered CBC, CMP, IV Zofran 4mg, IV bolus, and 1 mg IV Dilaudid for initial management. It is my impression that this gentleman needs general surgery for EGD for evaluation of upper GI bleed. I am trying to call the surgeon sap consultant here for possible hospital admission for EGD tomorrow. 10/07/18 14:50 Dr. Jose, our surgeon sap consultant was consulted, and he does not have the tools to fix an upper GI bleed in this OR. He suggested that the patient be transferred to [place], [place] for further management. 10/07/18 15:48 [facility] has been contacted, and Dr. Leblanc has accepted him for further evaluation in their ED. Departure - Departure Time of Disposition: 16:00 Disposition: DC/Tfer to Acute Hospital 02 Condition: Fair Clinical Impression: Diverticulitis, Hematemesis with nausea - Discharge Information Referrals: PCP,None [Primary Care Provider] - Forms: ED Department Discharge
[2018-10-07] MEDS ORDERED: Ondansetron 4 MG/2 ML SDV IVPUSH ONE (14:40)
[2018-10-07] MEDS ORDERED: Morphine 4 MG/ML Syringe IVPUSH ONE (15:40)
== END 2018-10-07 16:53 ==
LOC: JD.ED 12:17
DX: K57.92 Diverticulitis of intestine, part unspecified, without perforation or abscess without bleeding (principal); K92.0 Hematemesis; F17.210 Nicotine dependence, cigarettes, uncomplicated; F32.9 Major depressive disorder, single episode, unspecified; Z79.899 Other long term (current) drug therapy; Z91.041 Radiographic dye allergy status
CPT/HCPCS: 36415; 80053; 81001; 85007; 85027; 86140; 96361; 96374; 96375; 99285; J1170; J2270; J2405; J7040; 99284

== ENCOUNTER 2018-12-25 11:06 | Emergency (ER) | payer MEDICAID ==
--- NOTE | 2018-12-25 11:36 | EDM.PDOC ---
ED HPI GENERAL MEDICAL PROBLEM - General Chief Complaint: Gastrointestinal Problem Stated Complaint: DIZZY/LIGHT HEADED Time Seen by Provider: 12/25/18 11:17 Source of Information: Reports: Patient, RN Notes Reviewed History Limitations: Reports: No Limitations - History of Present Illness INITIAL COMMENTS - FREE TEXT/NARRATIVE: The patient states that he has had watery, non-bloody diarrhea for the past 3 weeks. He states that he was diagnosed with diverticulitis while in [place] about 3 weeks ago. He states that he was treated with a 7-day course of antibiotics - likely ciprofloxacin and metronidazole - but when his symptoms persisted, he was then prescribed an additional 10-day course of the same antibiotics. Since then, he states that his pain has improved, but that is watery diarrhea has persisted. He reports feeling lightheaded for the past 2 days. He has had nausea , but no emesis. No recent fever. No urinary symptoms. The patient states that he has taken some eyus-tqx-ovcvsae antacids, without relief of symptoms. He has not tried tlry-guo-jbhwysv loperamide. The patient's PCP is at the [facility] in [place]. Left Lower Abdomen Pain Score (Numeric/FACES): 4 - Related Data Allergies Allergy/AdvReac Type Severity Reaction Status Date / Time contrast dye Allergy Itching Uncoded 10/07/18 12:21 Home Meds: Home Meds Ondansetron [Zofran ODT] 4 mg SL ASDIRECTED PRN 09/30/18 [History] Losartan [Cozaar] 25 mg PO BID 12/25/18 [History] Pantoprazole Sodium [Protonix] 40 mg PO DAILY 12/25/18 [History] Past Medical History HEENT History: Reports: Impaired Vision Other HEENT History: wears glasses Cardiovascular History: Reports: Hypertension Gastrointestinal History: Reports: Diverticulosis (diverticulitis), GERD, Hiatal Hernia Genitourinary History: Reports: Renal Calculus Psychiatric History: Reports: Depression (untreated) Endocrine/Metabolic History: Reports: Hyperparathyroidism, Obesity/BMI 30+ - Past Surgical History HEENT Surgical History: Reports: Oral Surgery (wisdom teeth extraction) GI Surgical History: Reports: Cholecystectomy (around 2016), Colonoscopy (x 3), EGD (x 2) Male Surgical History: Reports: Other (See Below) (Right orchiectomy) Endocrine Surgical History: Reports: Parathyroidectomy (2 glands) Social & Family History - Family History Family Medical History: Noncontributory - Tobacco Use Smoking Status *Q: Current Every Day Smoker Years of Tobacco use: 23 Packs/Tins Daily: 0.3 Packs/Tins Daily Comment: Down from 1 ppd - Caffeine Use Caffeine Use: Reports: None - Alcohol Use Alcohol Use History: No - Recreational Drug Use Recreational Drug Use: Yes Drug Use in Last 12 Months: Yes Recreational Drug Type: Reports: Marijuana/Hashish (last smoked late November 2018) - Living Situation & Occupation Living situation: Reports: , with Significant Other (Dawit and her son ) Occupation: Unemployed ED ROS GENERAL - Review of Systems Review Of Systems: ROS reveals no pertinent complaints other than HPI. ED EXAM, GI/ABD - Physical Exam Exam: See Below Exam Limited By: No Limitations General Appearance: Alert, WD/WN, No Apparent Distress Eyes: Bilateral: Normal Appearance, EOMI Ears: Normal External Exam, Hearing Grossly Normal Nose: Normal Inspection Throat/Mouth: Normal Inspection, Normal Lips, Normal Voice, No Airway Compromise Head: Atraumatic, Normocephalic Neck: Normal Inspection, Full Range of Motion Respiratory/Chest: No Respiratory Distress, Lungs Clear, Normal Breath Sounds, No Accessory Muscle Use Cardiovascular: Normal Peripheral Pulses, Regular Rate, Rhythm, No Edema, No Gallop, No JVD, No Murmur, No Rub GI/Abdominal Exam: Normal Bowel Sounds, Soft, No Organomegaly, No Distention, No Abnormal Bruit, No Mass, Tender (Jzrc-fr-lasatvut, left abdomen only. Nontender elsewhere.) (Male) Exam: Deferred Rectal (Males) Exam: Deferred Back Exam: Normal Inspection, Full Range of Motion, NT Extremities: Normal Inspection, Normal Range of Motion, No Pedal Edema, Normal Capillary Refill Neurological: Alert, Oriented, Normal Cognition, No Motor/Sensory Deficits Psychiatric: Normal Affect Skin Exam: Warm, Dry, Intact, Normal Color, No Rash Course - Vital Signs Last Recorded V/S: Last Vital Signs Temp 36.8 C 12/25/18 11:22 Pulse Resp 16 12/25/18 11:22 BP Pulse Ox 99 12/25/18 11:22 Orthostatic Blood Pressure [ 135/106 Standing] Orthostatic Blood Pressure [ 142/90 Sitting] Orthostatic Blood Pressure [ 143/88 Supine] - Orders/Labs/Meds Labs: Laboratory Tests 12/25/18 12/25/18 12/25/18 Range/Units 11:42 11:42 11:59 WBC 5.35 (4.23-9.07) K/mm3 RBC 4.86 (4.63-6.08) M/mm3 Hgb 15.2 (13.7-17.5) gm/L Hct 42.6 (40.1-51.0) % MCV 87.7 (79.0-92.2) fl MCH 31.3 (25.7-32.2) pg MCHC 35.7 H (32.2-35.5) g/dl RDW Std Deviation 40.5 (35.1-43.9) fL Plt Count 252 (163-337) K/mm3 MPV 10.1 (9.4-12.3) fl Neutrophils % (Manual) 50 (40-60) % Band Neutrophils % 0 (0-10) % Lymphocytes % (Manual) 41 H (20-40) % Atypical Lymphs % 0 % Monocytes % (Manual) 7 (2-10) % Eosinophils % (Manual) 1 (0.8-7.0) % Basophils % (Manual) 1 (0.2-1.2) Platelet Estimate Adequate RBC Morph Comment Normal Sodium 137 (136-145) mEq/L Potassium 4.2 (3.5-5.1) mEq/L Chloride 102 (98-107) mEq/L Carbon Dioxide 25 (21-32) mEq/L Anion Gap 14.2 (5-15) BUN 19 H (7-18) mg/dL Creatinine 0.9 (0.7-1.3) mg/dL Est Cr Clr Drug Dosing 123.05 mL/min Estimated GFR (MDRD) > 60 (>60) mL/min BUN/Creatinine Ratio 21.1 H (14-18) Glucose 97 (74-106) mg/dL Calcium 9.4 (8.5-10.1) mg/dL Magnesium 1.8 (1.8-2.4) mg/dl Total Bilirubin 0.3 (0.2-1.0) mg/dL AST TNP ALT 63 (16-63) U/L Alkaline Phosphatase 86 (46-116) U/L Total Protein 7.4 (6.4-8.2) g/dl Albumin 3.7 (3.4-5.0) g/dl Globulin 3.7 gm/dL Albumin/Globulin Ratio 1.0 (1-2) TSH 3rd Generation 1.415 (0.358-3.74) uIU/mL C.difficile [id number] Presumptive negative C. difficile Tox (PCR) Negative - Re-Assessments/Exams Free Text/Narrative Re-Assessment/Exam: 12/25/18 11:35 The patient is not orthostatic, therefore it is not entirely clear why he is feeling lightheaded. I have ordered some blood work, to make sure that he does not have any significant electrolyte abnormalities, and to ascertain that he is not significantly hyper or hypothyroid. I've also ordered a C. difficile by PCR , to make sure that his diarrhea is not due to C. difficile. The patient reports some residual left sided abdominal pain, and he has mild to moderate tenderness on palpation, however, the patient is here for lightheadedness and continuing diarrhea, not his abdominal pain, which he states is slowly improving. I therefore don't feel a strong need to put the patient through a (repeat) emergency CT scan of the abdomen and pelvis. 12/25/18 12:50 The patient has been here for an hour and 44 minutes, but is anxious to leave. He has provided a stool sample, but we do not yet have the C. difficile results. The patient is demanding to know when his results will be ready - we are estimating 30 minutes. He responded that he will give us 30 minutes, then he is leaving. 12/25/18 13:21 Test results discussed with the patient. Today's workup is unremarkable. As above, he is not orthostatic. His CBC, CMP, magnesium, and TSH are all unremarkable, without any significant electrolyte abnormalities. His stool C. difficile returned negative. I explained that I cannot explain the cause of his lightheadedness, since he is neither hypotensive nor orthostatic. Further, I cannot say with certainty the cause of his diarrhea, other than it is not due to C. difficile. I am recommending that he take ojqc-uiy-qsmqdta loperamide, and he continue to stay adequately hydrated, as he apparently has been so, since his chemistry panel looks so good. I suggested that if his diarrhea persists, that he may need to see a [facility], which could be arranged through his PCP at the [facility] in [place]. Departure - Departure Time of Disposition: 13:23 Disposition: Home, Self-Care 01 Condition: Good Clinical Impression: Diarrhea, Lightheaded - Discharge Information *PRESCRIPTION DRUG MONITORING PROGRAM REVIEWED*: Not Applicable *COPY OF PRESCRIPTION DRUG MONITORING REPORT IN PATIENT JUSTEN: Not Applicable Referrals: PCP,None [Primary Care Provider] - Forms: ED Department Discharge Additional Instructions: You were seen in the emergency room for 3 weeks of watery diarrhea, with 2 days of lightheadedness. Workup in the ER included blood work, a C. difficile test of your stool, and positional blood pressure checks. Your entire workup was unremarkable. He did not have any significant electrolyte abnormalities, you are not dehydrated, your blood pressure maintained itself between lying and standing, and your stool is negative for C. difficile. The cause of your lightheadedness is not known. The cause of your diarrhea is not known, although it is not due to C. difficile. We recommend that you take rwsl-xtv-rpfowng loperamide (Imodium), 2 tablets initially, then 1 tablet after each loose bowel movement, to a maximum of 8 tablets within a 24-hour period. Continue to stay adequately hydrated. If your diarrhea persists, we recommend that you follow-up with your PCP at the [facility], to arrange to be seen by a [facility]. If any other problems, please do not hesitate to return to the ER.
== END 2018-12-25 13:33 | disposition home or self-care (01) ==
LOC: JD.ED 11:06
DX: R42 Dizziness and giddiness (principal); R19.7 Diarrhea, unspecified; I10 Essential (primary) hypertension; F17.210 Nicotine dependence, cigarettes, uncomplicated; Z91.041 Radiographic dye allergy status; Z79.899 Other long term (current) drug therapy
CPT/HCPCS: 36415; 80053; 83735; 84443; 85007; 85027; 87493; 99282; 99284